=== PATIENT | male | born 1960 | race Caucasian/White ===

== ENCOUNTER → 2016-10-12 | Outpatient (CLI) | payer SELFPAY ==
[~2016-10-12] MED LIST: ADVAIR 250/501 DISK IH; FLEXERIL10 MG PO; HYDROCODON-ACE1 EAC7 PO; INDOCIN50 MG PO; KEFLEX500 MG PO; MELATONIN10 M1 PO; PERCOCET 5/31 TABLET PO; PRILOSEC20 MG PO; SPIRIVA1 INHALATI PO; TRAMADOL HCL50 MG PO; VENTOLIN HFA18 GM IH; ZOFRAN4 MG PO
== END | disposition home or self-care (01) ==
LOC: RAD 13:00
DX: M50.30 Other cervical disc degeneration, unspecified cervical region (principal); R91.1 Solitary pulmonary nodule; M53.82 Other specified dorsopathies, cervical region; J44.9 Chronic obstructive pulmonary disease, unspecified; F17.200 Nicotine dependence, unspecified, uncomplicated; R42 Dizziness and giddiness
CPT/HCPCS: 71260; 72052

== ENCOUNTER 2017-01-11 15:34 | Emergency (ER) | payer SELFPAY ==
[~2017-01-11] VITALS: Ht 180.3 cm; Wt 61.0 kg
[~2017-01-11 15:34] MED LIST changes: +AMOXICILLIN125 MG PO; +ANTIVERT25 MG PO; +DULERA 200 MCG/13 GM IH; +SINGULAIR10 MG PO; +VITAMIN D31000 UNIT PO
[2017-01-11 16:46] LABS: BASOPHIL COUNT 0.1 K/uL (0-0.1); EOSINOPHIL (%) 2.8 % (0-5); EOSINOPHIL COUNT 0.2 K/uL (0-0.3); HEMATOCRIT 46.8 % (38.0-50.0); IMMATURE GRANULOCYTE (%) 0.4 % (0.0-0.7); INSTRUMENT ABS NEUTROPHIL CT 4.7 K/uL; LYMPHOCYTE COUNT 2.3 K/uL (1.0-2.8); MCH 31.1 PG (29.0-34.0); MCHC 34.2 G/DL (30.0-36.0); MCV 91.1 FL (86-99); MONOCYTE (%) 7.5 % (3-12); MONOCYTE COUNT 0.6 K/uL (0-0.8); NEUTROPHIL (%) 59.2 % (45-76); NEUTROPHIL COUNT 4.7 K/uL (1.8-6.4); PLATELET COUNT 274 K/uL (156-360); RBC DIS.WIDTH-CV 11.9 % (11.8-14.6); RBC DIS.WIDTH-SD 39.6 % (39-53); RED BLOOD COUNT 5.14 M/uL (4.00-5.50); WHITE BLOOD COUNT 7.9 K/uL (4.1-10.2)
[2017-01-11 16:56] LABS: CHLORIDE 105 mEq/L (99-109); D-DIMER ELISA 0.19 mg/L FEU (< 0.57); POTASSIUM 3.9 mEq/L (3.7-5.4); SODIUM 139 mEq/L (136-147)
[2017-01-11 16:58] LABS: GLUCOSE 132 mg/dL (70-99)
[2017-01-11 17:00] LABS: ANION GAP 8 MEQ/L (2-14); TOTAL BILIRUBIN 0.5 mg/dL (0.0-1.0)
[2017-01-11 17:02] LABS: ALKALINE PHOSPHATASE 54 IU/L (3-129); GFR ESTIMATE (CALCULATED) > 59 mL/min/
[2017-01-11 17:03] LABS: UREA NITROGEN (BUN) 12 mg/dL (9-23)
[2017-01-11 17:09] LABS: TROP-I INTERPRETATION NEGATIVE; TROPONIN-I < 0.01 ng/mL (0.0-0.30)
[2017-01-11 19:06] LABS: TROP-I INTERPRETATION NEGATIVE; TROPONIN-I 0.01 ng/mL (0.0-0.30)
[2017-01-11 19:30] VITALS: BP 109/77
== END 2017-01-11 19:31 | disposition home or self-care (01) ==
LOC: EME 15:34
PROVIDERS: Emergency Medicine
DX: R07.9 Chest pain, unspecified (principal); R09.1 Pleurisy; J44.9 Chronic obstructive pulmonary disease, unspecified; F17.200 Nicotine dependence, unspecified, uncomplicated; Z82.49 Family history of ischemic heart disease and other diseases of the circulatory system
CPT/HCPCS: 71020; 80053; 84484; 85025; 85379; 93005; 99281; 99284

== ENCOUNTER → 2017-04-19 | Outpatient (CLI) | payer OTHER | END | disposition home or self-care (01) | LOC: RES 07:49 | DX: Z02.71 Encounter for disability determination (principal) | CPT/HCPCS: 94060; 94729; 94760 ==